=== PATIENT | male | born 1965 | race African-American/Black ===

== ENCOUNTER → 2017-03-18 | Outpatient (CLI) | payer OTHER | END | disposition home or self-care (01) | LOC: HKI 14:22 | DX: Z47.89 Encounter for other orthopedic aftercare (principal) ==

== ENCOUNTER → 2017-04-10 | Outpatient (CLI) | payer OTHER | END | disposition home or self-care (01) | LOC: HKI 10:56 | DX: Z47.1 Aftercare following joint replacement surgery (principal); Z96.652 Presence of left artificial knee joint ==

== ENCOUNTER → 2017-08-19 | Outpatient (CLI) | payer OTHER | END | disposition home or self-care (01) | LOC: HKI 13:13 | DX: M25.562 Pain in left knee (principal); Z96.652 Presence of left artificial knee joint | CPT/HCPCS: 73564; 73564-LT ==